=== PATIENT | female | born 1985 | race Caucasian/White ===

== ENCOUNTER 2020-11-08 18:41 | Outpatient (CLI) | payer OTHER, SELFPAY ==
--- NOTE | ~2020-11-08 | XR_ITS ---
XR chest 2V DATE: 11/08/2020 19:01 INDICATION: Cough, shortness of breath. Covid-positive 09/2020. TECHNIQUE: PA and lateral views COMPARISON: None FINDINGS: Normal heart size. No hilar or mediastinal enlargement. No pulmonary infiltrate or consolid ation, pleural effusion or pulmonary vascular congestion or pneumothorax. IMPRESSION: No active cardiopulmonary disease Reviewed, dictated and finalized at location A. [facility]
== END 2020-11-08 18:42 | disposition home or self-care (01) ==
PROVIDERS: PCP Nurse Practitioner; Visit Provider Nurse Practitioner
DX: R05 Cough (principal)
CPT/HCPCS: 71046

== ENCOUNTER 2021-11-28 13:56 | Outpatient (CLI) | payer OTHER, SELFPAY ==
[2021-11-28 14:19] LABS: Hematocrit 41.5 % (37.0-47.0); Hemoglobin 13.5 g/dL (12.0-15.0); Mean Corpuscular HGB Conc 32.5 g/dl (32-36); Mean Corpuscular Hemoglobin 28.1 pg (26-34); Mean Corpuscular Volume 86.5 fl (80-100); Mean Platelet Volume 9.4 fl (7.4-10.4); Platelet Count Result 297 k/mm3 (150-375); Red Cell Distribution Width 13.5 % (11.5-14.5); White Blood Count 13.6 K/mm3 (4.5-10.0)
== END 2021-11-28 13:57 | disposition home or self-care (01) ==
LOC: ANHSURGERY 14:00
PROVIDERS: Visit Provider Student in an Organized Health Care Education/Training Program
DX: R10.2 Pelvic and perineal pain (principal); Z01.818 Encounter for other preprocedural examination
CPT/HCPCS: 36415; 85027; 86850; 86900; 86901

== ENCOUNTER 2021-12-01 00:53 | Day surgery (SDC) | payer OTHER, SELFPAY ==
[2021-11-22 12:30] VITALS: BMI 39.8
--- NOTE | 2021-11-22 12:44 | PC.NURSE ---
Report to the Outpatient Waiting Room, entrance under the green pavilion located off [facility], at time 6:00 on date 12/01/21. OR Time: 7:30. - You will be asked a series of questions to screen for COVID 19 for your protection. - A mask is required within the hospital. - No visitors are allowed at this time. Preoperative COVID Testing Requirements: No COVID Test needed if: (proof is required; if not received patient will have Rapid Test prior to entry) - Patient has received COVID Vaccine at least 14 days prior to procedure date or - Patient has positive COVID test result within last 90 days of surgery date. COVID Test needed if above criteria is not met Patients may have clear liquids (water, carbonated beverages, clear teas, apple juice) until 3 hours prior to surgery (4:30) with a maximum of 20 ounces. - No food from midnight until time of surgery Take the following medications with a SIP of water the morning of surgery: FLUOXETINE, LAMOTRIGINE Medications to discontinue per physician: VITAMINS/SUPPLEMENTS Date to take last dose: 11/27/21 Please no make-up, nail macedonian, hairspray, perfume, deodorant, or body powder the day of surgery. No jewelry (including any body piercings) or valuables the day of surgery, leave them at home. Please take a shower or bath the night before, or the morning of, surgery with an antibacterial soap. Wear comfortable, loose fitting clothing. - Jewelry must be removed prior to entering the operating room. Rings and piercings that are not removed may be cut off. - The hospital will not accept responsibility for valuables. - Please leave all valuables, including medications, at home the day of surgery. If you are going home after surgery, a licensed entry level truck driver must drive you home. - NO public transportation without another adult. - We recommend that an adult stay with you for 24 hours following discharge. - We also recommend that you do not drive, make important decision, drink alcoholic beverages, or take any drugs that were not prescribed by your health care provider for at least 24 hours after your discharge time. Follow any additional instructions given to you from your surgeon. Telephone instructions given to EDUARDO PERKINS and asked if any additional questions and then verbalized understanding. Patient advised to call surgeon office or pre surgery nurse liaison [phone] if any additional questions.
--- NOTE | 2021-11-30 13:26 | WPDANESEPPF ---
Anes - Initial Pre Proc Eval Procedure: Operation Date: 12/01/21 07:30 Proposed Procedures p Robotic Assisted Total Vaginal Hysterectomy with Bilateral Salpingectomy - Herbert Early MD Date/Time: 11/30/21 13:26 Surgeon: Herbert Early MD Pre Op Diagnosis: pelvic pain, ab uterine bleeding, enlarged uterus Patient Data Age: 35 Gender: F Height: 1.6 m Weight: 102.06 kg Allergies Allergy/AdvReac Type Severity Reaction Status Date / Time hydrocodone [From Vicodin] Allergy Severe Anaphylaxis Verified 11/22/21 12:27 Sulfa (Sulfonamide Allergy Hives Verified 11/22/21 12:27 Antibiotics) Home Medications Medication Instructions Recorded Confirmed Type esomeprazole magnesium 40 mg PO DAILY 11/22/21 11/22/21 History fluoxetine 20 mg PO DAILY 11/22/21 12/01/21 History lamotrigine 100 mg PO DAILY 11/22/21 12/01/21 History vit V-vbzdhvdj-nlq-calcium-D3 1 ea PO DAILY 11/22/21 11/22/21 History [Emergen-C Vitamin D-Calcium] Patient hx anesthesia problems: post op nausea/vomiting Family hx anesthesia problems: none Results Review: All pre-operative results and documents have been reviewed as part of the pre-operative evaluation. [facility] Past Medical History Medical History (Updated 11/30/21 @ 14:43 by Herbert Early MD) Anxiety Depression GERD (gastroesophageal reflux disease) Morbid obesity Social History Social History Smoking packs per day: 0.25 Smoking cigarettes per day: 5.0 Years smoked: 12 Smoking pack-years: 3.00 Smoking status: Former smoker Tobacco type: cigarettes Smoking end date: 10/14/17 Alcohol intake: current Drinks per week: 1 Substance use: never Substance use type: does not use Living arrangements: with family Spiritual care concerns: No Anes - Eval Final PreProcedure Day of Procedure 11/30/21 13:26 Patient weight: morbidly obese Heart: regular rate and rhythm Lungs: clear to auscultation Airway: Mallampati scale class III Neurological: alert and oriented Last oral intake: >/= 8 hours ASA classification: III Emergent: no Anesthetic plan: proceed Anesthesia type and monitoring: general ETT and standard monitoring Results Review: All pre-operative results and documents have been reviewed as part of the pre-operative evaluation. Informed Consent: The patient's anesthetic plan and its attendant risks and benefits were discussed with the patient/family/POA. Questions were solicited and answers provided to the satisfaction of the patient/family/POA.
--- NOTE | 2021-11-30 14:41 | PM.IMHP ---
H&P: HPI History of Present Illness Date/Time: 11/30/21 14:41 Chief Complaint: abnormal uterine bleeding dysmenorrhea Narrative: 35 yo who presents for robotic TLH/BS for AUB and dysmenorrhea. Pt has had heavy painful menses for some time. She has tried hormonal contraceptives in the past. She has failed an IUD. She then underwent an endometrial ablation and bilateral tubal ligation. Pt continued to have AUB and dysmenorrhea. Pt elects for definitive surgical management. Review of Systems Cardiovascular: Cardiovascular: Denies chest pain, Denies leg edema, Denies palpitations, Denies dyspnea and Denies dyspnea on exertion Respiratory: Respiratory: Denies cough, Denies dyspnea and Denies dyspnea on exertion Gastrointestinal: Gastrointestinal: Denies abdominal pain, Denies constipation, Denies diarrhea, Denies nausea and Denies vomiting Genitourinary: Genitourinary: Denies hematuria, Denies urinary frequency, Denies dysuria, Denies pelvic pain, Denies urinary incontinence and Denies vaginal discharge Neurologic: Reports system reviewed and no additional complaints, except as documented Psychiatric: Psychiatric: Reports no additional psychiatric complaints Endocrine: Endocrine: Denies palpitations [facility] Past Medical History Medical History (Updated 11/30/21 @ 14:43 by Herbert Early MD) Anxiety Depression GERD (gastroesophageal reflux disease) Morbid obesity Social History Social History Smoking packs per day: 0.25 Smoking cigarettes per day: 5.0 Years smoked: 12 Smoking pack-years: 3.00 Smoking status: Former smoker Tobacco type: cigarettes Smoking end date: 10/14/17 Alcohol intake: current Drinks per week: 1 Substance use: never Substance use type: does not use Spiritual care concerns: No Meds Home Medications and Allergies Home Medications Medication Instructions Recorded Confirmed Type esomeprazole magnesium 40 mg PO DAILY 11/22/21 11/22/21 History fluoxetine 20 mg PO DAILY 11/22/21 11/22/21 History lamotrigine 100 mg PO DAILY 11/22/21 11/22/21 History vit W-xrpcaoua-ehq-calcium-D3 1 ea PO DAILY 11/22/21 11/22/21 History [Emergen-C Vitamin D-Calcium] Allergies Allergy/AdvReac Type Severity Reaction Status Date / Time acetaminophen [From Vicodin] Allergy Severe Anaphylaxis Verified 11/22/21 12:27 hydrocodone [From Vicodin] Allergy Severe Anaphylaxis Verified 11/22/21 12:27 Sulfa (Sulfonamide Allergy Hives Verified 11/22/21 12:27 Antibiotics) Exam Const: General: no acute distress Eyes: EOM: EOMs intact bilaterally Neck: Neck: supple Thyroid: thyroid normal Chest: Breast/axilla inspection: normal inspection of the breasts Breast/axilla palpation: normal palpation of the breasts, normal palpation of the axillae and no axillary lymphadenopathy Resp: Effort & Inspection: normal respiratory effort Auscultation: clear to auscultation bilaterally Cardio: Rate: regular rate Rhythm: regular rhythm GI: Inspection: non-distended GI Palp: Yes Soft to palpation, No Tenderness to palpation present (GI) and No Guarding due to palpation present (GI) Auscultation: normal bowel sounds : General: No bladder normal to palpation External Female Exam: normal external appearance Speculum Exam - Vagina: normal vaginal discharge and No vaginal bleeding Speculum Exam - Cervix: nontender Bimanual exam- vagina & uterus: No bladder normal to palpation and No Cervical tenderness present OB/external & speculum: No vaginal bleeding Skin: General skin exam: normal color and no rashes or lesions noted Neuro: Cognition (Neuro): normal cognition Speech: normal speech Extrem: General: normal to inspection and no edema Psych: Mental Status: mental status grossly normal Affect: normal affect Assessment and Plan Assessment and plan (1) Abnormal uterine bleeding (AUB): Code(s): N93.9 - Abnormal uterine and vaginal bleeding, unspecified Status: Acut
[2021-12-01] VITALS (11 sets, daily range): BP systolic 102–135; BP diastolic 59–86; PULSE 68–83; RESP 12–18; TEMP 36.1–36.8; O2SAT 93–100
[2021-12-01] MEDS: ACETAMINOPHEN 500 MG TABLET 1000 MG PO (06:31)
[2021-12-01] MEDS: LACTATED RINGERS 1,000 ML 30 ML IV CONT ×2 (06:36→09:15)
[2021-12-01] MEDS: SCOPOLAMINE 1.5 MG PATCH TRANSDERM (06:36)
[2021-12-01] MEDS: KETOROLAC 15 MG/ML VIAL (*BKC) IV PUSH (06:47)
--- NOTE | 2021-12-01 07:27 | WPDHPUPDATE1 ---
History and Physical Update Update Date/Time: 12/01/21 07:27 History and Physical has been reviewed, including an updated exam of the patient. There are NO changes in the patient's condition. Risks, benefits, and alternatives have been discussed and questions answered. Patient agrees to proceed with procedure.
[2021-12-01] MEDS: ceFAZolin 2 GM/D5W 50 ML 2 GM/50 ML BAG IVPB (07:32)
[2021-12-01] MEDS: LIDO 1%/EPINEPHRINE 1:100,000 50 ML VIAL 30 ML INFILTRATE (08:26)
--- NOTE | 2021-12-01 09:17 | W.PM.PROC2 ---
Procedure Note - Detailed Date of Procedure 12/01/21 Pre-op Diagnosis pelvic pain, ab uterine bleeding Post-op Diagnosis same Procedure Performed robotic assisted total laparoscopic hysterectomy and bilateral salpingectomy, left ovarian cystectomy Surgeon Herbert Early MD Anesthesia general Indications AUB refractory to medical management and s/p endometrial ablation Findings enlarged left ovary with complex cyst Description of Procedure After the patient was appropriately consented she was taken to the operating room where she was transferred to the table in a dorsal supine position. General anesthesia was then induced with endotracheal intubation. The patient was transferred to a dorsal lithotomy position using adjustable yellow-fin stirrups. Her position was adjusted for appropriate support of her lower back and lower extremities. The patient was prepped and draped. A transurethral silvestre catheter was place. The cervix was sequentially dilated and a DORIS uterine manipulator placed in typical fashion about a 3cm ERIN ring. Gloves were changed. After confirmation of a functioning orogastric tube, lidocaine was injected at Mishra's point in the LUQ and a 5mm incision was made. A 5mm Optiview trocar was then inserted into the abdominal cavity under direct visualization and done so without complication. The abdomen was then insufflated with approximately 2-3L of CO2 establishing a pneumoperitoneum and the patient was placed in Trendelenburg position. Just above the umbilicus in the midline, a 8mm incision made after injection of lidocaine and a 8mm bladeless trocar advanced into the abdominal cavity under direct visualization without incident. We subsequently placed two robotic ports in a similar fashion, one in the left mid-quadrant and one in the right, 10cm lateral to the midline port. The robot was then docked. There were some omental adhesions to the left pelvic sidewall. The omental adhesions were gently taken down with monopolar energy. The dissection was performed to better visualize the adnexal anatomy and the course of the ureters. The course of the ureters was identified bilaterally. Attention was turned to the left pelvis. The fallopian tubes were noted to be previously transected during tubal ligation. The remaining left fallopian tube was removed by sequentially dividing the mesosalpinx towards the uterus sparing the ovary. The utero-ovarian ligament was desiccated and transected, as was the round ligament. The posterior peritoneal leaf was taken down to the ERIN ring. The anterior leaf was developed as well as the start of the bladder flap. The left uterine artery was then skeletonized and desiccated and transected just above the level of the ERIN ring. Attention was turned to the right pelvis. The remaining right fallopian tube was removed by sequentially dividing the mesosalpinx towards the uterus sparing the ovary. The utero-ovarian ligament was desiccated and transected, as was the round ligament. The posterior peritoneal leaf was taken down to the ERIN ring. The anterior leaf was developed as well as the start of the bladder flap. The right uterine artery was then skeletonized and desiccated and transected just above the level of the ERIN ring. The bladder was then further dissected inferiorly over the level of the ERIN ring. A circumferential colpotomy was made using monopolar current. The uterus, cervix, bilateral tubes were then delivered transvaginally. Attention was then turned to the left ovarian cyst. The ovarian capsule was incised over the ovarian cyst. The cyst drained clear fluid. The cyst wall was then grasped and removed with gentle counter traction. The cyst wall was removed transvaginally. The ovarian capsule was observed and made hemostatic with monopolar cautery. I then placed a single figure of eight suture of 0-vicryl in the left corner of the vaginal cuff. I then re-approximated the colpotomy with a running #1 PDO Quill suture
[2021-12-01] MEDS: fentaNYL CITRATE INJ (*CRX) 100 MCG/2 ML VIAL 25 MCG IV PUSH ×4 (09:25→09:40)
[2021-12-01] MEDS: MORPHINE SULFATE (*CRX) 2 MG/ML INJ IV PUSH ×3 (09:55→11:42)
[2021-12-01] MEDS: diphenhydrAMINE HCl INJ 50 MG/ML VIAL 12.5 MG IV PUSH (10:17)
--- NOTE | 2021-12-01 11:00 | PC.NURSE ---
This patient, Bushra Srinivasan, was received from PACU on 12/01/21 at 1100. Patient/family oriented to unit policies and routines
[2021-12-01] MEDS: LACTATED RINGERS 1,000 ML 125 ML IV CONT (11:30)
[2021-12-01] MEDS: IBUPROFEN 600 MG TABLET PO ×2 (14:43→20:24)
[2021-12-01] MEDS: oxyCODONE/ACETAMINOPHEN (*CRX) 5-325 MG TABLET 1 TABLET PO ×3 (14:44→23:46)
[2021-12-02 00:25] VITALS: BP 135/63; PULSE 68; RESP 18; TEMP 35.8; O2SAT 97
[2021-12-02] MEDS: IBUPROFEN 600 MG TABLET PO (03:24)
[2021-12-02] MEDS: oxyCODONE/ACETAMINOPHEN (*CRX) 5-325 MG TABLET 1 TABLET PO ×2 (03:24→08:42)
[2021-12-02 03:28] VITALS: BP 122/73; PULSE 67; RESP 18; TEMP 36; O2SAT 98
[2021-12-02 05:46] LABS: Basophils Absolute Auto 0.1 K/mm3 (0.0-0.1); Basophils Percent Auto 0.4 % (0.2-1.2); Hemoglobin 11.8 g/dL (12.0-15.0); Immature Granulocyte Absolute 0.14 K/mm3 (0.00-0.031); Immature Granulocyte Percent A 0.7 % (0-0.5); Lymphocytes Absolute Auto 2.33 K/mm3 (0.9-3.2); Lymphocytes Percent Auto 11.2 % (18.3-44.2); Mean Corpuscular HGB Conc 31.9 g/dl (32-36); Mean Corpuscular Hemoglobin 28.9 pg (26-34); Mean Corpuscular Volume 90.5 fl (80-100); Mean Platelet Volume 10.5 fl (7.4-10.4); Monocytes Absolute Auto 1.6 K/mm3 (0.1-0.6); Monocytes Percent Auto 7.5 % (2.6-8.5); Neutrophils Absolute Auto 16.7 K/mm3 (1.3-6.7); Neutrophils Percent Auto 80.2 % (45.5-73.1); Platelet Count Result 276 k/mm3 (150-375); Red Blood Count 4.09 M/mm3 (4.2-5.4); Red Cell Distribution Width 13.8 % (11.5-14.5); White Blood Count 20.8 K/mm3 (4.5-10.0)
[2021-12-02 06:01] LABS: Anion Gap 9 mmol/L (8-16); Blood Urea Nitrogen 15 mg/dL (7-17); Calcium 8.7 mg/dL (8.4-10.2); Carbon Dioxide 25 mmol/L (22-30); Chloride 104 mmol/L (98-107); Estimated CRCL calculation 98 ml/min; Estimated Glomerular Filt Rate > 60; Glucose 112 mg/dL (65-110); Potassium 4.5 mmol/L (3.4-5.0); Sodium 138 mmol/L (137-145)
[2021-12-02 08:00] VITALS: BP 121/69; PULSE 71; RESP 16; TEMP 36.4; O2SAT 98
--- NOTE | 2021-12-02 09:35 | PM.DS ---
DS: Admitting Diagnosis Discharge Date 12/02/21 Admitting Diagnosis abnormal uterine bleeding DS: Summary Hospital Course Hospital Course: Bushra was admitted after robotic assisted total laparoscopic hysterectomy and bilateral salpingectomy with left ovarian cystectomy for abnormal uterine bleeding. The above procedure was performed with no complications. She is doing well post op. She states her pain is well controlled with PO medications. She reports minimal bleeding. She is ambulating up to the chair. Her silvestre catheter was removed. She is tolerating PO without N/V. She reports passing flatus. Status at Discharge Overall status at discharge: patient is progressing back to baseline Time Spent with Patient Time attestation: Total time spent providing and/or coordinating discharge services: Time spent: Less than 30 minutes Exam Const: General: comfortable and no acute distress Limitations: no limitations Resp: Effort & Inspection: normal respiratory effort Auscultation: clear to auscultation bilaterally Cardio: Rate: regular rate Rhythm: regular rhythm GI: Inspection: non-distended GI Palp: Yes Soft to palpation, Yes Tenderness to palpation present (GI) (milder tenderness to deep palpation) and No Guarding due to palpation present (GI) Auscultation: normal bowel sounds Other: incisions C/D/I covered with dermabond Urinary Catheter: Urinary Catheter: urine clear Skin: General skin exam: normal color Extrem: General: normal to inspection Psych: Mental Status: mental status grossly normal Affect: normal affect DS: Data Data Completed and Pending Pending studies at discharge: Pending at discharge 12/01/21 08:27 Surgical [PTH] Routine Surgical [PTH] Routine Labs on day of discharge: Labs from last 24 hours 12/02/21 12/02/21 03:19 03:19 WBC 20.8 H RBC 4.09 L Hgb 11.8 L Hct 37.0 MCV 90.5 MCH 28.9 MCHC 31.9 L RDW 13.8 Plt Count 276 MPV 10.5 H Immature Gran % (Auto) 0.7 H Neut % (Auto) 80.2 H Lymph % (Auto) 11.2 L [place] % (Auto) 7.5 Eos % (Auto) 0.0 Baso % (Auto) 0.4 Lymph # (Auto) 2.33 [place] # (Auto) 1.6 H Eos # (Auto) 0.0 Baso # (Auto) 0.1 Abs Immat Gran (auto) 0.14 H Absolute Neuts (auto) 16.7 H Absolute Nucleated RBC 0.0 Nucleated RBC % 0.0 Sodium 138 Potassium 4.5 Chloride 104 Carbon Dioxide 25 Anion Gap 9 BUN 15 Creatinine 0.80 Estim Creat Clear Calc 98 Estimated GFR > 60 Glucose 112 H Calcium 8.7 Discharge Plan Discharge Patient Disposition: Home, Self-Care Patient Instructions: Laparoscopic Hysterectomy (DC) Stand Alone Forms: General Discharge Instructions Follow-up/Referrals: Herbert Early MD [Physician] - 2 Weeks Discharge Medications: New ibuprofen 600 mg Tablet 600 mg PO Q6H PRN (Reason: Cramping) Qty: 30 RF: 0 oxycodone-acetaminophen 5-325 mg tablet 1 tablet PO Q6H PRN (Reason: pain) Qty: 30 RF: 0 Continued esomeprazole magnesium 40 mg capsule,delayed release(DR/EC) 40 mg PO DAILY RF: 0 fluoxetine 20 mg capsule 20 mg PO DAILY RF: 0 lamotrigine 100 mg tablet 100 mg PO DAILY RF: 0 vit O-vgaiahtw-opp-calcium-D3 500 mg-500 mg -1,000 unit Powder Effervescent In Packet 1 ea PO DAILY RF: 0
[2021-12-02] MEDS: KETOROLAC 30 MG/ML VIAL (*BKC) IV PUSH (09:41)
[2021-12-02] MEDS: FLUoxetine HCL 20 MG CAPSULE PO (11:11)
[2021-12-02] MEDS: lamoTRIgine 100 MG TABLET PO (11:11)
[2021-12-02] MEDS: PANTOPRAZOLE 40 MG TABLET PO (11:11)
== END 2021-12-02 11:43 | disposition home or self-care (01) ==
LOC: ANHSURGERY 09:13 → ANHOB2 10:58
PROVIDERS: Visit Provider Student in an Organized Health Care Education/Training Program
PROC: (CPT 58571; principal; 2021-12-01 07:30)
DX: R10.2 Pelvic and perineal pain (principal); N93.9 Abnormal uterine and vaginal bleeding, unspecified; N80.0 Endometriosis of uterus; N73.6 Female pelvic peritoneal adhesions (postinfective); N83.12 Corpus luteum cyst of left ovary; N94.6 Dysmenorrhea, unspecified; K21.9 Gastro-esophageal reflux disease without esophagitis; F41.8 Other specified anxiety disorders; Z87.891 Personal history of nicotine dependence; E66.01 Morbid (severe) obesity due to excess calories; Z68.41 Body mass index [BMI] 40.0-44.9, adult
CPT/HCPCS: 58571; 58662; S2900; 36415; 80048; 85025; 85027; 86850; 86900; 86901; 88305; 88307; 99199; A9270; J0690; J1100; J1170; J1200; J1885; J2250; J2270; J2405; J2704; J2710; J3010; J7030; J7120